=== PATIENT | female | born 1960 | race African-American/Black ===

== ENCOUNTER 2018-10-12 18:32 | Inpatient (IN) | payer MEDICAID ==
[~2018-10-12] VITALS: Ht 157.5 cm; Wt 80.3 kg
[~2018-10-12 18:32] MED LIST: AZIT500T2 PO; FLUT1DIS3 ORI; LISI2.5T47 PO; LISI2.5T89 PO; METH4TAB3 PO; TRAM50TA94 PO; albuterol inhaler INH
[2018-10-12] MEDS ORDERED: KETOROLAC 15MG/ML VIAL IV ONE (19:15)
[2018-10-12] MEDS ORDERED: FURO40TA5 PO (19:59)
[2018-10-12] MEDS ORDERED: METO-396 PO (19:59)
[2018-10-12] MEDS ORDERED: LETR2.5T6 PO (19:59)
[2018-10-12] MEDS ORDERED: SACU1TAB4 PO (19:59)
[2018-10-12] MEDS ORDERED: POMA4CAP PO (19:59)
[2018-10-12] MEDS ORDERED: ASPI-1159 PO (19:59)
[2018-10-12 20:07] LABS: HEMATOCRIT. 41.7 % (36.0-48.0); HEMOGLOBIN. 13.5 g/dL (12.0-16.0); MEAN CORPUSCULAR HEMOGLOBIN 29.3 pg (28.0-32.0); MEAN CORPUSCULAR VOLUME 90.5 fL (81.0-99.0); MEAN PLATELET VOLUME 7.8 fl (7.4-10.4); PLATELET 343 x1000/uL (130-400); RED BLOOD CELL COUNT 4.61 mill/uL (4.2-5.4); RED CELL DISTRIBUTION WIDTH 16.3 % (11.6-14.6)
[2018-10-12 20:11] LABS: CHLORIDE 107 mEq/L (98-107)
[2018-10-12 20:14] LABS: CLARITY URINE CLEAR (CLEAR); COLOR URINE YELLOW (YELLOW); KETONES URINE NEGATIVE (NEGATIVE); LEUKOCYTE ESTERASE URINE NEGATIVE (NEGATIVE); NITRITE URINE NEGATIVE (NEGATIVE); OCCULT BLOOD URINE NEGATIVE (NEGATIVE); PROTEIN URINE 1+ (NEGATIVE); SPECIFIC GRAVITY URINE 1.022 (1.005-1.030); UROBILINOGEN URINE 0.2 E.U./dL (0.2-1.0)
[2018-10-12 20:15] LABS: PROTHROMBIN TIME 10.4 sec (9.1-11.1)
[2018-10-12 20:53] LABS: PLATELET ESTIMATE NORMAL
[2018-10-12] MEDS ORDERED: ASPIRIN 81MG TABLET PO NR (21:45)
[2018-10-12] MEDS ORDERED: ONDANSETRON HCL 4MG/2ML INJ IV NR (21:45)
[2018-10-12] MEDS ORDERED: MORPHINE SULFATE 10 MG/ML CPJ IV NR (21:45)
[2018-10-12] MEDS ORDERED: IOHEXOL-350 100 ML BOTTLE ONE (23:15)
[2018-10-13] MEDS ORDERED: MORPHINE SULFATE 4 MG/ML CPJ (NOT FOR IM USE) IV ONE
[2018-10-13] MEDS ORDERED: MORPHINE SULFATE 10 MG/ML CPJ IV NR (01:00)
[2018-10-13] MEDS ORDERED: METO-396 PO (02:24)
[2018-10-13] MEDS ORDERED: CALC-1042 PO (02:24)
[2018-10-13 02:33] VITALS: BP 116/76
[2018-10-13] MEDS ORDERED: ALBUTEROL 6.7GM HFA INHALER ORI PRN (03:15)
[2018-10-13 04:00] VITALS: BP 90/68
[2018-10-13] MEDS ORDERED: ALBUTEROL (0.083%) 2.5MG/3ML NEB HHN PRN (04:45)
[2018-10-13 08:00] VITALS: BP 98/68
[2018-10-13] MEDS: LETROZOLE 2.5MG TABLET PO SCH ×2 (09:00→16:35)
[2018-10-13] MEDS ORDERED: METOPROLOL TARTRATE 25MG TABLET PO ONE (09:00)
[2018-10-13] MEDS: METOPROLOL TARTRATE 25MG TABLET PO SCH ×2 (09:00→20:42)
[2018-10-13] MEDS: FUROSEMIDE 40MG TABLET PO SCH (09:11)
[2018-10-13] MEDS: ASPIRIN 81MG TABLET PO SCH (09:11)
[2018-10-13] MEDS: CALCIUM CARBONATE 1250MG TABLET (500MG ELEMENTAL CALCIUM) PO SCH (09:11)
[2018-10-13 12:49] VITALS: BP 100/71
[2018-10-13 16:23] VITALS: BP 112/81
[2018-10-13] MEDS: POMALYST PO SCH (16:35)
[2018-10-13 20:00] VITALS: BP 115/74
[2018-10-14] VITALS: BP 92/51
[2018-10-14 04:00] VITALS: BP 104/54
[2018-10-14 07:05] LABS: HEMATOCRIT. 38.3 % (36.0-48.0); HEMOGLOBIN. 12.7 g/dL (12.0-16.0); MEAN CORPUSCULAR HEMOGLOBIN 29.7 pg (28.0-32.0); MEAN CORPUSCULAR VOLUME 89.5 fL (81.0-99.0); MEAN PLATELET VOLUME 7.8 fl (7.4-10.4); PLATELET 364 x1000/uL (130-400); RED BLOOD CELL COUNT 4.28 mill/uL (4.2-5.4); RED CELL DISTRIBUTION WIDTH 16.4 % (11.6-14.6)
[2018-10-14 08:00] VITALS: BP 121/83
[2018-10-14] MEDS: CALCIUM CARBONATE 1250MG TABLET (500MG ELEMENTAL CALCIUM) PO SCH (09:02)
[2018-10-14] MEDS: FUROSEMIDE 40MG TABLET PO SCH (09:02)
[2018-10-14] MEDS: METOPROLOL TARTRATE 25MG TABLET PO SCH ×2 (09:02→21:00)
[2018-10-14] MEDS: ASPIRIN 81MG TABLET PO SCH (09:03)
[2018-10-14] MEDS: LETROZOLE 2.5MG TABLET PO SCH (09:04)
[2018-10-14] MEDS: POMALYST PO SCH (09:13)
[2018-10-14 11:05] LABS: CHLORIDE 107 mEq/L (98-107)
[2018-10-14 12:00] VITALS: BP 105/70
[2018-10-14 13:03] LABS: PLATELET ESTIMATE NORMAL
[2018-10-14 16:00] VITALS: BP 120/81
[2018-10-14] MEDS ORDERED: HYDROCODONE/ACETAMINOPHEN 5/325MG TABLET PO PRN (16:00)
[2018-10-14 20:00] VITALS: BP 99/66
[2018-10-15] VITALS: BP 106/75
[2018-10-15 04:00] VITALS: BP 112/78
[2018-10-15 08:00] VITALS: BP 121/88
[2018-10-15] MEDS: METOPROLOL TARTRATE 25MG TABLET PO SCH (08:48)
[2018-10-15] MEDS: LETROZOLE 2.5MG TABLET PO SCH (08:48)
[2018-10-15] MEDS: FUROSEMIDE 40MG TABLET PO SCH (08:48)
[2018-10-15] MEDS: CALCIUM CARBONATE 1250MG TABLET (500MG ELEMENTAL CALCIUM) PO SCH (08:48)
[2018-10-15] MEDS: ASPIRIN 81MG TABLET PO SCH (08:48)
[2018-10-15] MEDS: POMALYST PO SCH (08:49)
== END 2018-10-15 15:15 | disposition home or self-care (01) | DRG 206 ==
LOC: ER 18:32 → 8WST 10-13 00:25 → ENRESERV 10-13 00:43
PROVIDERS: ADMIT Internal Medicine; ATTEND Internal Medicine
DX: T82.190A Other mechanical complication of cardiac electrode, initial encounter (principal); C90.00 Multiple myeloma not having achieved remission; I42.9 Cardiomyopathy, unspecified; I11.0 Hypertensive heart disease with heart failure; I50.9 Heart failure, unspecified; E66.9 Obesity, unspecified; R07.89 Other chest pain; I25.10 Atherosclerotic heart disease of native coronary artery without angina pectoris; J45.909 Unspecified asthma, uncomplicated; Y71.2 Prosthetic and other implants, materials and accessory cardiovascular devices associated with adverse incidents; Z85.3 Personal history of malignant neoplasm of breast; Z95.810 Presence of automatic (implantable) cardiac defibrillator; Z90.11 Acquired absence of right breast and nipple; Z87.891 Personal history of nicotine dependence; Z90.710 Acquired absence of both cervix and uterus; Z92.21 Personal history of antineoplastic chemotherapy; Z88.0 Allergy status to penicillin; Z79.82 Long term (current) use of aspirin; Z79.899 Other long term (current) drug therapy; Y92.89 Other specified places as the place of occurrence of the external cause
CPT/HCPCS: 36415; 71045; 71275; 80048; 83880; 84484; 85379; 93005; 93306; 96374; 96375; 96376; 99285; J1885; J2270; J2405; Q9967